=== PATIENT | male | born 1960 | race Caucasian/White ===

== ENCOUNTER 2017-10-16 20:32 | Emergency (ER) | payer SELFPAY ==
[2017-10-16 20:59] VITALS: BP 114/62; PULSE 73; RESP 16; TEMP 97.7; O2SAT 100
--- NOTE | 2017-10-16 22:48 | ED PDOC ---
Lower Extremity Pain/Injury Time Seen by Provider: 10/16/17 21:41 Chief Complaint (Nursing): Lower Extremity Problem/Injury Chief Complaint (Provider): Foot Pain History Per: Patient History/Exam Limitations: no limitations Onset/Duration Of Symptoms: Days (x2) Current Symptoms Are (Timing): Still Present Severity: Moderate Pain Scale Rating Of: 5 Additional Complaint(s): Patient is a 57 year old male who presents to ED complaining of atraumatic, left foot pain. Patient states the pain worsens with ambulation, weight bearing , and with his first few steps walking. Patient reports history of similar symptoms in the past when he sprained his foot as a young adult. Patient reports he has been taking Aleve for the pain at home, last dose this morning. Patient denies any recent falls or radiation of the pain however states he does walk 3-4 miles per day on a treadmill. Otherwise: (-) other joint pain (-) fever (-) rash. PMD: Zack Past Medical History Reviewed: Historical Data, Nursing Documentation, Vital Signs Vital Signs: Last Vital Signs Temp 97.7 F 10/16/17 20:55 Pulse 73 10/16/17 20:55 Resp 16 10/16/17 20:55 BP 114/62 10/16/17 20:55 Pulse Ox 100 10/16/17 20:55 - Medical History PMH: HTN, Hyperlipidemia - Surgical History Surgical History: Hernia Repair Other surgeries: meniscus repair - Family History Family History: States: Unknown Family Hx - Living Arrangements Living Arrangements: With Family - Social History Current smoker - smoking cessation education provided: No Alcohol: None Drugs: Denies - Home Medications Home Medications: Ambulatory Orders Medication Instructions Recorded Meloxicam [Mobic] 15 mg PO DAILY #14 tab 10/16/17 - Allergies Allergies/Adverse Reactions: Allergies Allergy/AdvReac Type Severity Reaction Status Date / Time No Known Allergies Allergy Verified 10/16/17 20:55 Review of Systems ROS Statement: Except As Marked, All Systems Reviewed And Found Negative Musculoskeletal: Positive for: Foot Pain Physical Exam - Reviewed Nursing Documentation Reviewed: Yes Vital Signs Reviewed: Yes - Physical Exam Appears: Positive for: Well, Non-toxic, No Acute Distress Head Exam: Positive for: ATRAUMATIC, NORMOCEPHALIC Skin: Positive for: Normal Color, Warm, Dry Eye Exam: Positive for: EOMI, PERRL Neck: Positive for: Painless ROM, Supple Cardiovascular/Chest: Positive for: Regular Rate, Rhythm. Negative for: Murmur , Bradycardia, Tachycardia Respiratory: Positive for: Normal Breath Sounds. Negative for: Decreased Breath Sounds, Accessory Muscle Use, Respiratory Distress Pulses-Dorsalis Pedis (L): 2+ Pulses-Dorsalis Pedis (R): 2+ Pulses-Post. Tibialis (L): 2+ Pulses-Post. Tibialis (R): 2+ Extremity: Positive for: Normal ROM (of left knee, foot, and ankle), Tenderness (to the dorsum of the left midfoot), Capillary Refill (<2 seconds in all toes of the left foot). Negative for: Pedal Edema, Calf Tenderness, Deformity, Swelling, Other ((-) effusion (-) ecchymosis (-) overlying skin changes (-) evidence of infection (-) erythema) Neurologic/Psych: Positive for: Alert, Oriented (x3), Gait (steady) - ECG O2 Sat by Pulse Oximetry: 100 (RA) Pulse Ox Interpretation: Normal Medical Decision Making Medical Decision Making: Clinical Impression: acute foot pain, foot sprain of left foot Plan: Toradol 30mg IM Morro bandage Re-eval On re-evaluation, patient reports improvement of symptoms and continues to ambulate in ED with steady gait. On exam, patient remains AAOx3, in no acute distress. On exam, neck is supple, lungs CTA, cardiac RRR, neuro exam shows no focal findings. Affected foot remains NV intact after morro bandage placement by Korey MCCORD. VSS Diagnostic results d/w the patient in great detail. Dx of acute foot pain/ sprain d/w the patient. Based on history, exam and diagnostic results plan will be for discharge and podiatry follow up. EDGARD encouraged. Advised to follow up with primary care physician/podiatry in 1-2 days without fail. Advised to take medication as prescribed. Return to the emergency room at any time for any new or worsening symptoms. Patient states he fully agrees with and understands discharge instructions. States that he agrees with the plan and disposition. Verbalized and repeated discharge instructions and plan. I have given the patient opportunity to ask any additional questions. Disposition - Clinical Impression Clinical Impression: Foot pain, left, Sprain of foot, left - Patient ED Disposition Is Patient to be Admitted: No Counseled Patient/Family Regarding: Diagnosis, Need For Followup, Rx Given - Disposition Referrals: Paulino Kinney MD [Staff Provider] - Disposition: Routine/Home Disposition Time: 22:44 Condition: STABLE Prescriptions: Meloxicam [Mobic] 15 mg PO DAILY #14 tab Instructions: Foot Sprain (DC) Forms: [facility] (Chinese) Print Language: WELSH - POA Present On Arrival: None
== END 2017-10-16 23:01 | disposition home or self-care (01) ==
LOC: H.ER 20:32
DX: M79.672 Pain in left foot (principal)
CPT/HCPCS: 96372; 99283; J1885